=== PATIENT | female | born 1990 | race Caucasian/White ===

== ENCOUNTER → 2016-06-26 20:25 | Observation (INO) ==
[2016-06-26 20:06] LABS: Bilirubin,Urine Negative (Negative); Blood,Urine Negative (Negative); Clarity,Urine Clear (Clear); Color,Urine Dark Yellow (Yellow); Glucose,Urine (UA) Normal (Normal); Ketones,Urine Negative (Negative); Leukocyte Esterase,Urine Large (Negative); Nitrite,Urine Negative (Negative); Protein,Urine 30 mg/dL (Neg-Trace); Specific Gravity,Urine 1.027 (1.010-1.025)
[2016-06-26 20:19] LABS: Bacteria,Urine Few per hpf (None-Few); Hyaline Casts,Urine Few per lpf (None-Few); Squamous Epithelial Cell,Urine Moderate per lpf (None-Few); WBC,Urine 15-30 per hpf (0-3)
--- NOTE | 2016-06-26 20:22 | Discharge Summary ---
Date of Encounter: 06/26/16 Time of Encounter: 20:22 - Discharge Diagnosis (1) 32 weeks gestation of Priority: Primary Status: Acute Comments: admit for observation (2) False labor before 37 completed weeks of gestation Priority: Secondary Status: Acute Comments: R/o labor normal UA results. no cervical change Qualifiers: Trimester: third trimester Qualified Code(s): O47.03 - False labor before 37 completed weeks of gestation, third trimester (3) NST (non-stress test) reactive Priority: Secondary Status: Acute Comments: FHR baseline 125 bpm moderate variablity RNST - Discharge Medications Home Medications: No Known Home Drugs 06/26/16 [History] Allergies/Adverse Reactions: Allergies No Known Allergies Allergy (Verified 06/26/16 18:51) Data Procedures and tests throughout hospitalization: Laboratory Tests 06/26/16 18:56 Urine Color Dark Yellow Urine Clarity Clear Urine pH 7.0 Ur Specific [place] 1.027 H Urine Protein 30 H Urine Glucose (UA) Normal Urine Ketones Negative Urine Blood Negative Urine Nitrite Negative Urine Bilirubin Negative Urine Urobilinogen 2.0 H Ur Leukocyte Esterase Large H Urine Microscopic WBC 15-30 H Ur Squamous Epith Cells Moderate H Urine Bacteria Few Hyaline Casts Few Ur Culture Indicated? YES A Labs on day of discharge: Labs from last 24 hours 06/26/16 18:56 Urine Color Dark Yellow Urine Clarity Clear Urine pH 7.0 Ur Specific [place] 1.027 H Urine Protein 30 H Urine Glucose (UA) Normal Urine Ketones Negative Urine Blood Negative Urine Nitrite Negative Urine Bilirubin Negative Urine Urobilinogen 2.0 H Ur Leukocyte Esterase Large H Urine Microscopic WBC 15-30 H Ur Squamous Epith Cells Moderate H Urine Bacteria Few Hyaline Casts Few Ur Culture Indicated? YES A Date of admission: 06/26/16 18:27 Discharging clinician: Cristy Lopes Anticipated date of discharge: 06/26/16 - Patient Status Disposition: Home, Self-Care Condition: Good Functional capacity at discharge: independent ambulation - Discharge Instructions Follow Up With: Steph Welhc CNM [Non-Partnered Physician] - - Diet and Activity Activity: other (Pelvic rest) Diet: regular diet Hospital Course OIL SCOUT Hospital course: Patient is 25 y/o at 32w3d presents to labor and delivery with complaints of contractions last night that were 3-5 min apart. No contractions today however vaginal pressure. Patient reports +FM, denies LOF or vaginal bleeding. Patient is on pelvic rest due to being dilated 60/-2 in office last week. Patient denies any urinary symptoms. Time Attestation: Total time spent providing and/or coordinating discharge services: Time Spent: Less than 30 minutes Exam - Constitutional General appearance IM: A&O X 3, pleasant, answers questions appropriately - Respiratory Respiratory exam: Present: CTAB - Cardiovascular Cardiovascular exam IM: Present: RRR, +S1, +S2 - GI/Abdominal GI/Abdominal exam IM: normal bowel sounds - Extremities Exam Extremities exam IM: Present: normal capillary refill, normal inspection - Neurological Exam Neurological exam: oriented X3, reflexes normal Additional comments: FHR 125 bpm moderate variability +15x15 accels no decels noted. Contraction x1 noted lasting 50 seconds. SVE /60/-2. - VTE Reasons for not Prescribing Prophylaxis: Treatment not Indicated - Low risk for VTE
== END | disposition home or self-care (01) ==
LOC: 1NENULAB
PROVIDERS: ADMIT Obstetrics & Gynecology; ATTEND Obstetrics & Gynecology

== ENCOUNTER 2017-08-03 23:51 | Observation (INO) ==
[2017-08-04 01:07] LABS: Amphetamine Screen,Urine Negative ng/mL (Cutoff=1000); Barbiturate Screen,Urine Negative ng/mL (Cutoff=200); Benzodiazepines Screen,Urine Negative ng/mL (Cutoff=200); Cannabinoid Screen,Urine Negative ng/mL (Cutoff = 50); Cocaine Screen,Urine Negative ng/mL (Cutoff= 300); Opiate Screen,Urine Negative ng/mL (Cutoff=300); Phencyclidine Screen,Urine Negative ng/mL (Cutoff=25)
--- NOTE | 2017-08-04 01:32 | OB/GYN Progress Note ---
Date of Encounter: 08/04/17 Time of Encounter: 01:26 - Assessment and Plan (1) 38 weeks gestation of Current Visit: Yes Status: Acute (2) Uterine contractions Current Visit: Yes Status: Acute With no change on serial cervical exam. Patient with minimal change from office exam. Discharged home with labor and went to the return to triage precautions. Advised patient she could take Tylenol and Benadryl to assist with sleep. Patient verbalizes understanding (3) NST (non-stress test) reactive Current Visit: No Status: Acute Baseline 115 Subjective - Subjective Interval history: presents to labor and delivery with reports of contractions since 3 PM this afternoon. Patient states she has been having contractions of increasing intensity now occurring about every 3 minutes that she came to triage for evaluation. Reports good movement, denies vaginal bleeding or leaking of fluid. Antepartum ROS: movement normal, contractions, no loss of fluid, no vaginal bleeding Objective - Vital Signs Vital Signs: Intake and Output 08/03/17 08/03/17 08/04/17 15:59 23:59 07:59 Other: Weight 101.3 kg Patient Weight 08/04/17 23:59 Weight 101.3 kg - Exam FHR: auscultation normal FHR comments: Baseline 115 Auscultation: bilateral: normal Abdomen: Present: normal appearance, soft, gravid Cervical dilation: 380/-3 per RN
== END 2017-08-04 01:34 | disposition home or self-care (01) ==
LOC: 1NENULAB
PROVIDERS: ADMIT Obstetrics & Gynecology; ATTEND Obstetrics & Gynecology

== ENCOUNTER 2017-08-08 20:19 | Inpatient (IN) ==
[~2017-08-08 20:19] MED LIST: *HR* Nalbuphine 20 MG/ML AMPUL IVP PRN; Famotidine 20 MG/2 ML VIAL IVP PRN; Lidocaine 1% 20 ML MDV INFILT PRN; Metoclopramide 10 MG/2 ML VIAL IVP PRN; Naloxone 0.4 MG/ML INJ IVP PRN; Ondansetron 4 MG/2 ML VIAL IVP PRN
[2017-08-08] MEDS ORDERED: Ringers Solution, Lactated 1,000 ML IVC SCH (20:30)
[2017-08-08] MEDS ORDERED: Penicillin G Potassium 5,000,000 UNIT in 0.9 % Sodium Chloride Mini Bag 100 ML IVPB ONE (21:00)
[2017-08-08 21:15] LABS: Basophils % 0.1 %; Eosinophils % 0.1 %; Hematocrit 30.3 % (35.3-44.9); Hemoglobin 10.5 g/dL (11.5-15.4); Immature Granulocytes % 0.4 % (0-4); Lymphocytes # 1.1 K/mcL (0.6-4.6); Mean Corpuscular HGB Conc 34.7 g/dL (31.6-35.5); Mean Corpuscular Hemoglobin 31.5 pg (28.0-33.3); Mean Platelet Volume 9.6 fL (9.4-12.4); Monocytes # 0.7 K/mcL (0.0-1.3); Monocytes % 4.8 %; Platelet Count 224 K/mcL (140-400); Red Blood Count 3.33 M/mcL (3.82-4.97); Red Cell Distribution Width 12.2 % (11.5-14.5); Segmented Neutrophils % 86.6 %
--- NOTE | 2017-08-08 21:21 | OB/GYN History & Physical ---
Date of Encounter: 08/08/17 Time of Encounter: 21:17 Assessment and Plan (1) 38 weeks gestation of Current visit: Yes Status: Acute Grossly ruptured Admit to labor and delivery for labor GBS positive - PCN prophylaxis ordered May have nubain and /or epidural upon request Consider pitocin for labor augmentation Anticipate vaginal delivery POC per consult with Dr Maria. (2) Rupture of membranes with clear amniotic fluid Current visit: Yes Status: Acute (3) Uterine contractions Current visit: No Status: Acute History of Present Illness Chief complaint: Labor HPI: Ms. Loera is a 26 year old at 38 weeks and 4 days that presents to labor and delivery with c/o rupture of membranes at 1730. She states positive movement and contractions every 5 minutes. She denies headache, vision changes, epgastric pain, and vaginal bleeding. Her has had no complications. Labs: GBS positive HIV nonreactive Treponema negative Rubella positive Varicella positive Hep B nonreactive Blood type O+ Past Med Surg Social Fam HX - Past Medical History Medical history: no medical history Psychiatric history: no psych history - Social History Smoking Status: Never smoker Smokeless Tobacco Status: No Alcohol use: none Drug use: none - Family History Father Adopted: No Living Status: Still Living Hx Family Cardiac Disorders: Yes (HTN) Hx Family Endocrine Disorder: Yes (diabetes) Hx Family Musculoskeletal Disorders: Yes (DM) Obstetrical History - Pregnancies : 7 Para: 2 Term: 1 : 1 Ab's: 4 Livin Medications and Allergies Vit #108/Iron/FA [ One Tablet] 1 tab PO DAILY 08/04/17 [History ] 3 Allergy/AdvReac Type Severity Reaction Status Date / Time No Known Allergies Allergy Verified 08/04/17 00:40 Review of System OB All systems PM: reviewed and no additional remarkable complaints except as stated Exam - Constitutional Constitutional: well developed, well nourished, no acute distress, average body habitus - HEENT HEENT: Normocephaly, Mucus Membranes Moist - Neck Neck exam: full ROM - Lungs Respiratory exam: CTAB - Cardiovascular Cardiovascular exam: RRR, +S1, +S2 - Abdomen Abdomen: Present: bowel sounds normal, gravid, non tender - Extremities Extremities exam: normal capillary refill, normal inspection, radial pulses palpable and symmetrical Deep Tendon Reflex Grade: 2+ Normal - Vulva Vulva: bilateral: normal - Cervix Dilation: 5 (Per RN exam) - Uterus Uterus exam: Present: normal size, normal contour - Anus/Rectum Anus/Rectum: Present: normal perianal skin Results All other labs normal. - VTE Reasons for not Prescribing Prophylaxis: Treatment not Indicated - Low risk for VTE
[2017-08-08 21:27] LABS: Amphetamine Screen,Urine Negative ng/mL (Cutoff=1000); Barbiturate Screen,Urine Negative ng/mL (Cutoff=200); Benzodiazepines Screen,Urine Negative ng/mL (Cutoff=200); Cannabinoid Screen,Urine Negative ng/mL (Cutoff = 50); Cocaine Screen,Urine Negative ng/mL (Cutoff= 300); Opiate Screen,Urine Negative ng/mL (Cutoff=300); Phencyclidine Screen,Urine Negative ng/mL (Cutoff=25)
[2017-08-08] MEDS ORDERED: Oxytocin 20 units/ LR 1000 mL 20 UNIT/1,000 ML BAG IVC SCH (21:30)
[2017-08-09] MEDS ORDERED: Penicillin G Potassium 2,500,000 UNIT in 0.9 % Sodium Chloride 100 ML IVPB SCH
--- NOTE | 2017-08-09 02:34 | OB/GYN Procedure Note ---
Delivery - Delivery Date: 08/09/17 Provider: Elvira Corrales Intrapartum events: none Delivery induction: none Delivery augmentation: pitocin Delivery monitor: external FHT, external uterine Anesthesia: none Estimated Blood Loss: 250 - Infant (s) Infant A Delivery Date: 08/09/17 Delivery Time: 01:55 Presentation: vertex, compound (left hand) Position: JENNIFFER Route of delivery: Gender: Male Viability: Viable Pounds: 7 Ounces: 2 Weight Gram: 3.23 kg at 1 minute: 8 at 5 mins: 9 Shoulder Dystocia: not encountered Specimens collected: cord blood Placenta: spontaneous Cord: 3 umbilical vessels - Repair Episiotomy: none Laceration Description: Superficial - Complications Delivery complications: none Delivery comments: Patient progressed to complete and began spontaneously pushing to of viable vigorous male in the JENNIFFER with left compound hand. No nuchal, no meconium, and no shoulder dystocia encountered. Shoulders and body delivered easily. Infant placed on maternal abdomen; warmed, dried, and stimulated. Cord double clamped and cut when pulsations ceased. Placenta delivered spontaneously and appears grossly intact with 3 vessel cord. Upon inspection several superficial hemostatic lacerations were left to heal by second intention : right 3mm jennifer-clitoral, right anterior 5mm introitus, and right posterior 2 cm introitus. EBL 250. Infant and mother stable in recovery. Dr Maria notified. - Disposition Mom disposition: stable in LDR disposition: stable in LDR
[2017-08-09] MEDS ORDERED: Oxytocin 20 units/ LR 1000 mL 20 UNIT/1,000 ML BAG IVC SCH (04:15)
[2017-08-09] MEDS ORDERED: Sennosides 8.6 MG TABLET PO PRN (04:15)
[2017-08-09] MEDS ORDERED: Benzocaine/Menthol 56 GM AEROSOL SPRAY TP PRN (04:15)
[2017-08-09] MEDS ORDERED: Oxytocin 20 units/ LR 1000 mL 20 UNIT/1,000 ML BAG IVC ONE (04:15)
[2017-08-09] MEDS ORDERED: Acetaminophen 325 MG TABLET PO PRN (04:15)
[2017-08-09] MEDS: Ibuprofen 600 MG TABLET PO PRN ×2 (04:27→21:30)
[2017-08-09] MEDS: Prenatal Vit/FA 1 EACH TABLET PO SCH (07:53)
[2017-08-10 06:33] LABS: Basophils % 0.3 %; Eosinophils # 0.2 K/mcL (0.0-0.6); Hematocrit 29.5 % (35.3-44.9); Lymphocytes # 2.3 K/mcL (0.6-4.6); Lymphocytes % 20.9 %; Mean Corpuscular HGB Conc 33.9 g/dL (31.6-35.5); Mean Corpuscular Hemoglobin 31.3 pg (28.0-33.3); Mean Corpuscular Volume 92.5 fL (83.0-100.0); Mean Platelet Volume 9.5 fL (9.4-12.4); Monocytes % 9.1 %; Neutrophils # 7.4 K/mcL (1.6-8.9); Platelet Count 225 K/mcL (140-400); Red Blood Count 3.19 M/mcL (3.82-4.97); Red Cell Distribution Width 12.5 % (11.5-14.5); Segmented Neutrophils % 66.7 %
[2017-08-10 07:49] VITALS: BP 104/70
[2017-08-10] MEDS: Prenatal Vit/FA 1 EACH TABLET PO SCH (07:58)
--- NOTE | 2017-08-10 09:03 | Discharge Summary ---
Date of Encounter: 08/10/17 Time of Encounter: 09:01 - Discharge Diagnosis (1) Vaginal delivery Priority: Primary Status: Acute Comments: Continue routine care. Meeting day 1 milestones. Anticipate discharge today (2) Breast feeding status of mother Priority: Secondary Status: Acute Comments: support prn - Discharge Medications Prescriptions: Ibuprofen [Motrin] 600 mg PO Q6HR PRN #60 tablet PRN Reason: Cramping Docusate [Colace] 100 mg PO BID #60 capsule Home Medications: Vit #108/Iron/FA [ One Tablet] 1 tab PO DAILY 08/04/17 [History ] Acetaminophen [Tylenol] 650 mg PO Q6HR PRN tablet 08/10/17 [Rx] Benzocaine/Menthol Lee [Dermoplast Lee] 1 appl TP QID PRN aerosol 08/10/17 [Rx] Docusate [Colace] 100 mg PO BID #60 capsule 08/10/17 [Rx] Ibuprofen [Motrin] 600 mg PO Q6HR PRN #60 tablet 08/10/17 [Rx] Allergies/Adverse Reactions: 3 Allergy/AdvReac Type Severity Reaction Status Date / Time No Known Allergies Allergy Verified 08/04/17 00:40 Data Procedures and tests throughout hospitalization: Laboratory Tests 08/08/17 08/08/17 08/10/17 20:45 20:45 06:23 WBC 13.9 H 11.1 RBC 3.33 L 3.19 L Hgb 10.5 L 10.0 L Hct 30.3 L 29.5 L MCV 91.0 92.5 MCH 31.5 31.3 MCHC 34.7 33.9 RDW 12.2 12.5 Plt Count 224 225 MPV 9.6 9.5 Immature Gran % 0.4 1.0 Seg Neutrophils % 86.6 66.7 Lymphocytes % 8.0 20.9 Monocytes % 4.8 9.1 Eosinophils % 0.1 2.0 Basophils % 0.1 0.3 Neutrophils # 12.0 H 7.4 Lymphocytes # 1.1 2.3 Monocytes # 0.7 1.0 Eosinophils # 0.0 0.2 Basophils # 0.0 0.0 Urine Opiates Screen Negative Ur Barbiturates Screen Negative Ur Phencyclidine Scrn Negative Ur Amphetamines Screen Negative U Benzodiazepines Scrn Negative Urine Cocaine Screen Negative U Marijuana (THC) Screen Negative Labs on day of discharge: Labs from last 24 hours 08/10/17 06:23 WBC 11.1 RBC 3.19 L Hgb 10.0 L Hct 29.5 L MCV 92.5 MCH 31.3 MCHC 33.9 RDW 12.5 Plt Count 225 MPV 9.5 Immature Gran % 1.0 Seg Neutrophils % 66.7 Lymphocytes % 20.9 Monocytes % 9.1 Eosinophils % 2.0 Basophils % 0.3 Neutrophils # 7.4 Lymphocytes # 2.3 Monocytes # 1.0 Eosinophils # 0.2 Basophils # 0.0 Date of admission: 08/08/17 20:19 Primary care physician: PCP NONE Consults: 08/09/17 04:15 Consult to Renal Medicine Specialist [CONS] Routine Comment: Vaginal delivery, consult needed Discharging clinician: Steph Welch Anticipated date of discharge: 08/10/17 - Patient Status Disposition: Home, Self-Care Condition: Good Functional capacity at discharge: independent ambulation Overall status at discharge: patient is progressing back to baseline - Discharge Instructions Follow Up With: NONE,PCP [Primary Care Provider] - Elvira Corrales, CNM [Advanced Practice Nurse] - - Diet and Activity Activity: resume usual activities as tolerated Diet: regular diet Hospital Course Reason for admission: active labor Delivery: Episiotomy: none Laceration: other (See delivery note. Several small lacerations) Other procedures: none complications: none Discharge diagnosis: IUP at term delivered baby: male Hospital course: Delivery Date: 08/09/17 Provider: Elvira Corrales Intrapartum events: none Delivery induction: none Delivery augmentation: pitocin Delivery monitor: external FHT, external uterine Anesthesia: none Estimated Blood Loss: 250 - Infant (s) A Delivery Date: 08/09/17 Infant Delivery Time: 01:55 Presentation: vertex, compound (left hand) Position: JENNIFFER Route of delivery: Gender: Male Viability: Viable Pounds: 7 Ounces: 2 Weight Gram: 3.23 kg at 1 minute: 8 at 5 mins: 9 Shoulder Dystocia: not encountered Specimens collected: cord blood Placenta: spontaneous Cord: 3 umbilical vessels - Repair Episiotomy: none Laceration Description: Superficial - Complications Delivery complications: none Delivery comments: Patient progressed to complete and began spontaneously pushing to of viable vigorous male in the JENNIFFER with left compound hand. No nuchal, no meconium, and no shoulder dystocia encountered. Shoulders and body delivered easily. Infant placed on maternal abdomen; warmed, dried, and stimulated. Cord double clamped and cut when pulsations ceased. Placenta delivered spontaneously and appears grossly intact with 3 vessel cord. Upon inspection several superficial hemostatic lacerations were left to heal by second intention : right 3mm jennifer-clitoral, right anterior 5mm introitus, and right posterior 2 cm introitus. EBL 250. and mother stable in recovery. Dr Maria notified. Time Attestation: Total time spent providing and/or coordinating discharge services: Time Spent: Less than 30 minutes Exam - Constitutional Vitals: Temp Pulse Resp BP Pulse Ox 97.3 F L 66 16 104/70 98 08/10/17 07:48 08/10/17 07:48 08/10/17 07:48 08/10/17 07:48 08/09/17 19:15 General appearance IM: cooperative, A&O X 3, no acute distress - Respiratory Respiratory exam: Present: CTAB - Cardiovascular Cardiovascular exam IM: Present: RRR, +S1, +S2 - GI/Abdominal GI/Abdominal exam IM: normal bowel sounds, soft - Rectal Rectal exam: deferred - Uterine Tone: Firm Uterus Position: 1 Finger Below Umbilicus - Extremities Exam Extremities exam IM: Present: full ROM, normal capillary refill, normal inspection - Neurological Exam Neurological exam: alert, normal gait, oriented X3
== END 2017-08-10 12:45 | disposition home or self-care (01) | DRG 560 ==
LOC: 1NENULAB → 1NENUOBS 08-09 04:12
PROVIDERS: ADMIT Advanced Practice Midwife; ATTEND Advanced Practice Midwife

== ENCOUNTER → 2020-08-23 14:33 | Observation (INO) | END | disposition home or self-care (01) | LOC: 1NENULAB | PROVIDERS: ADMIT Advanced Practice Midwife; ATTEND Advanced Practice Midwife ==

== ENCOUNTER → 2020-08-30 00:12 | Observation (INO) | END | disposition home or self-care (01) | LOC: 1NENULAB | PROVIDERS: ADMIT Advanced Practice Midwife; ATTEND Advanced Practice Midwife ==

== ENCOUNTER 2020-09-07 14:25 | Inpatient (IN) ==
[2020-09-07] MEDS ORDERED: Naloxone 0.4 MG/ML INJ IVP PRN (14:38)
[2020-09-07] MEDS ORDERED: Metoclopramide 10 MG/2 ML VIAL IVP PRN (14:38)
[2020-09-07] MEDS ORDERED: Famotidine 20 MG/2 ML VIAL IVP PRN (14:38)
[2020-09-07] MEDS ORDERED: Azithromycin 500 MG in 0.9 % Sodium Chloride 250 ML IVPB ONE (14:38)
[2020-09-07] MEDS ORDERED: Ondansetron 4 MG/2 ML VIAL IVP PRN (14:38)
[2020-09-07] MEDS ORDERED: *HR* Nalbuphine 10 MG/ML AMPUL IV PRN (14:38)
[2020-09-07] MEDS ORDERED: Penicillin G Potassium 5,000,000 UNIT in 0.9 % Sodium Chloride Mini Bag 100 ML IVPB ONE (14:44)
[2020-09-07] MEDS ORDERED: Oxytocin 20 units/ LR 1000 mL 20 UNIT/1,000 ML BAG IVC SCH (14:45)
[2020-09-07] MEDS ORDERED: Ringers Solution, Lactated 1,000 ML ONE (14:55)
[2020-09-07] MEDS ORDERED: Ringers Solution, Lactated 1,000 ML IVC SCH (15:00)
[2020-09-07 15:20] LABS: Basophils % 0.1 %; Eosinophils % 0.3 %; Hematocrit 31.3 % (35.3-44.9); Immature Granulocytes % 0.6 % (0-4); Lymphocytes # 0.9 K/mcL (0.6-4.6); Lymphocytes % 10.1 %; Mean Corpuscular HGB Conc 35.1 g/dL (31.6-35.5); Mean Corpuscular Hemoglobin 33.3 pg (28.0-33.3); Mean Corpuscular Volume 94.8 fL (83.0-100.0); Mean Platelet Volume 9.7 fL (9.4-12.4); Monocytes # 0.5 K/mcL (0.0-1.3); Monocytes % 5.5 %; Neutrophils # 7.7 K/mcL (1.6-8.9); Platelet Count 232 K/mcL (140-400); Red Cell Distribution Width 12.4 % (11.5-14.5); Segmented Neutrophils % 83.4 %; White Blood Count 9.3 K/mcL (4.3-11.1)
[2020-09-07 15:49] LABS: Amphetamine Screen,Urine Negative ng/mL (Cutoff=1000); Barbiturate Screen,Urine Negative ng/mL (Cutoff=200); Benzodiazepines Screen,Urine Negative ng/mL (Cutoff=200); Cannabinoid Screen,Urine Negative ng/mL (Cutoff = 50); Cocaine Screen,Urine Negative ng/mL (Cutoff= 300); Opiate Screen,Urine Negative ng/mL (Cutoff=300); Phencyclidine Screen,Urine Negative ng/mL (Cutoff=25)
[2020-09-07 16:23] LABS: Influenza A PCR Negative (Negative); Influenza B PCR Negative (Negative); Resp. Syncytial Virus PCR Negative (Negative); SARS-CoV-2 by PCR (In House) Negative (Negative)
[2020-09-07] MEDS ORDERED: Penicillin G Potassium 2,500,000 UNIT in 0.9 % Sodium Chloride 100 ML IVPB SCH (19:00)
[2020-09-08] MEDS ORDERED: *HR* HYDROcodone/Acet 5/325 mg TABLET PO PRN (04:31)
[2020-09-08] MEDS ORDERED: Benzocaine/Menthol 56 GM AEROSOL SPRAY TP PRN (04:31)
[2020-09-08] MEDS ORDERED: Oxytocin 20 units/ LR 1000 mL 20 UNIT/1,000 ML BAG IVC SCH (04:31)
[2020-09-08] MEDS ORDERED: Ibuprofen 600 MG TABLET PO PRN (04:31)
[2020-09-08] MEDS ORDERED: Acetaminophen 325 MG TABLET PO PRN (04:31)
[2020-09-08] MEDS ORDERED: Lanolin 7 G OINT...G. TP PRN (04:31)
[2020-09-08] MEDS: Prenatal Vit/FA 1 EACH TABLET PO SCH (07:36)
[2020-09-09 07:55] VITALS: BP 124/82
[2020-09-09] MEDS: Prenatal Vit/FA 1 EACH TABLET PO SCH (08:15)
== END 2020-09-09 12:30 | disposition home or self-care (01) | DRG 560 ==
LOC: 1NENULAB → 1NENUOBS 09-08 05:35
PROVIDERS: ADMIT Advanced Practice Midwife; ATTEND Advanced Practice Midwife